=== PATIENT | male | born 1945 | race Caucasian/White ===

== ENCOUNTER 2018-09-18 08:07 | Outpatient (CLI) | payer MEDICARE, BC ==
--- NOTE | 2018-09-18 10:08 | ULT ---
THYROID SONOGRAM: HISTORY: Thyroid nodule. Goiter. FINDINGS: The right thyroid lobe measures up to 4.6 cm and contains multiple heterogeneous solid and complex cy stic nodules. The largest is at the mid portion measuring up to 1.3 cm. Isthmus is 0.3 cm. Left thyroid lobe measures up to 4.7 cm. At the inferior pole is a well-circumsc ribed fairly homogeneous isoechoic nodule measuring up to 2.3 x 1.4 x 1.3 cm diameters. IMPRESSION: Multinodular goiter. POS: [facility]
== END 2018-09-18 08:08 | disposition home or self-care (01) ==
LOC: SCSULT 08:07
PROVIDERS: ATTEND Internal Medicine
DX: E04.2 Nontoxic multinodular goiter (principal)
CPT/HCPCS: 76536

== ENCOUNTER 2022-08-15 11:28 | Outpatient (CLI) | payer MEDICARE, BC | END 2022-08-15 11:29 | disposition home or self-care (01) | LOC: MRI 11:28 | PROVIDERS: ATTEND Specialist | DX: M75.121 Complete rotator cuff tear or rupture of right shoulder, not specified as traumatic (principal); M75.91 Shoulder lesion, unspecified, right shoulder; S43.401A Unspecified sprain of right shoulder joint, initial encounter ==